=== PATIENT | female | born 1965 ===

== ENCOUNTER 2021-05-31 07:25 | Inpatient (IN) | payer OTHER ==
[~2021-05-31 07:25] MED LIST: CLARITIN10 M1 PO; FLONASE16 GM NS; SINGULAIR 10MG10 MG PO; [UNRECOGNIZED DRUG - OTHER]
== END 2021-06-01 11:21 | disposition home or self-care (01) | DRG 749 ==
LOC: CIR.AMB 07:25 → SURG 20:56
PROVIDERS: ADMIT Obstetrics & Gynecology Gynecologic Oncology; ATTEND Obstetrics & Gynecology Gynecologic Oncology
PROC: 07BC4ZZ Excision of Pelvis Lymphatic, Percutaneous Endoscopic Approach (ICD-10-PCS; 2021-05-31)
PROC: 07BD4ZZ Excision of Aortic Lymphatic, Percutaneous Endoscopic Approach (ICD-10-PCS; 2021-05-31)
PROC: 0DBU4ZZ Excision of Omentum, Percutaneous Endoscopic Approach (ICD-10-PCS; principal; 2021-05-31 16:30)
DX: C56.1 Malignant neoplasm of right ovary (principal); C78.6 Secondary malignant neoplasm of retroperitoneum and peritoneum